=== PATIENT | male | born 1950 | race Caucasian/White ===

== ENCOUNTER 2025-05-31 01:44 | Emergency (ER) | payer OTHER ==
[2025-05-31] MEDS ORDERED: MORPHINE 4 MG/ML SYR ONE (02:06)
[2025-05-31] MEDS ORDERED: FAMOTIDINE 20 MG/2 ML VIAL IV ONE (02:06)
[2025-05-31] MEDS ORDERED: ONDANSETRON 4 MG/2 ML VIAL ONE (02:06)
[2025-05-31 02:28] LABS: Absolute Lymphocytes (CBC) 0.5 K/uL (0.7-4.9); Hematocrit 45.5 % (39.6-49.0); Hemoglobin 15.2 g/dL (13.6-17.9); MCH 29.6 pg (27.0-35.0); MCHC 33.5 g/dL (32.0-36.0); MCV 88.4 fL (80-100); MPV 8.4 fL (7.6-11.3); Nucleated RBC Absolute Count 0.0 (0-0); Nucleated Red Blood Cells % 0.0 % (0-0); RBC Red Blood Cell Count 5.15 M/uL (4.33-5.43); White Blood Count 11.30 thou/uL (4.3-10.9)
[2025-05-31 02:44] LABS: ALT/SGPT 393.0 U/L (16-61); AST/SGOT 131.0 U/L (15-37); Albumin 3.4 g/dL (3.4-5.0); Albumin/Globulin Ratio 0.7 (1.1-1.8); Alkaline Phosphatase 226.0 U/L (45-117); Anion Gap 13.0 mEq/L (5.0-15.0); BUN Blood Urea Nitrogen 14.0 mg/dL (7-18); Globulin 5.0 g/dL (2.3-3.5); Glucose Level 124.0 mg/dL (74-106); Lipase 3028.0 U/L (13-75); Potassium 4.0 mEq/L (3.5-5.1)
[2025-05-31 04:07] LABS: Blood Morphology Comment NOT SEEN (NOT SEEN); Differential Total Cells Count 100; Segmented Neutrophils 82 % (40-80)
[2025-05-31] MEDS ORDERED: NA CHLORIDE 0.9% 1,000 ML ONE (04:17)
[2025-05-31] MEDS ORDERED: PIPERACIL/TAZO 4.5 GM VIAL IV ONE (04:17)
[2025-05-31] MEDS ORDERED: NA CHLORIDE 0.9% 100 ML ONE (04:18)
--- NOTE | 2025-05-31 06:07 | EDPHYS ---
Physician Documentation [facility] Name: Stu Chand Age: 74 yrs Sex: Male : 1950 Arrival Date: 05/31/2025 Time: 01:44 Bed 13 Private MD: ED Physician Tyrese Sanders HPI: 05/31 02:27 This 74 yrs old Male presents to ER via Ambulatory with complaints of Abdominal Pain. tt7 02:27 Patient reports 3 days of constant epigastric abdominal pain with associated nausea and tt7 1 episode of nonbloody nonbilious vomiting today. No exacerbating or alleviating factors. Pain is 7/10 in severity. No significant past medical history. Historical: - Allergies: 02:25 No Known Allergies; kt5 - Home Meds: 02:25 None [Active]; kt5 - PMHx: 02:25 None; kt5 - Immunization history:: Adult Immunizations up to date. - Infectious Disease History:: Denies. - Social history:: Smoking status: Patient reports the use of cigarette tobacco products, smokes two packs cigarettes per day. Patient/guardian denies using alcohol, street drugs, IV drugs. ROS: 02:28 Constitutional: negative for fever. Cardiovascular: negative for chest pain. tt7 Respiratory: negative for shortness of breath. MS/Extremity: negative for injury and deformity. Skin: negative for rash. Neuro: negative for focal weakness. 02:28 Abdomen/GI: Positive for abdominal pain, nausea and vomiting, Negative for diarrhea, Exam: 02:28 Constitutional: vital signs reviewed, well appearing. Head/Face: normocephalic, tt7 atraumatic. Eyes: no conjunctival injection, anicteric sclerae. ENT: mucus membranes moist. Neck: trachea midline, no JVD, no meningismus. Chest/axilla: normal chest wall appearance and motion, nontender, no crepitus. Cardiovascular: regular rate and rhythm, no murmurs, no rubs, no lower extremity edema. Respiratory: normal respiratory effort, no accessory muscle use, lungs CTAB. Abdomen/GI: soft, nondistended, moderate epigastric tenderness, no guarding or rebound, negative Escalona's sign, no McBurney point tenderness. Back: normal ROM. Skin: warm, dry, intact, normal turgor, normal color, no rash. MS/ Extremity: normal ROM of extremities, no gross deformities. Neuro: alert and oriented with appropriate mental status, normal speech, follows commands, no focal neurologic deficits. Psych: appropriate mood and affect. 08:17 ECG was reviewed by the Attending Physician. [facility] Vital Signs: 01:50 BP 158 / 90; Pulse 68; Resp 17; Temp 97.7; Pulse Ox 96% ; Weight 79.38 kg; Height 6 ft. jj7 0 in. ; 03:22 BP 145 / 83; Pulse 86; Resp 18; Pulse Ox 96% ; Pain 3/10; kt5 04:29 BP 145 / 88; Pulse 80; Resp 18 S; Pulse Ox 95% on R/A; at6 05:17 BP 127 / 68; Pulse 81; Resp 18; Pulse Ox 93% ; kt5 06:22 BP 130 / 72; Pulse 84; Resp 16 S; Pulse Ox 93% on R/A; kt5 07:41 BP 129 / 70; Pulse 83; Resp 18; Pulse Ox 99% on R/A; ph 08:15 BP 151 / 95; Pulse 78; Resp 18; Pulse Ox 96% on R/A; af3 08:29 BP 134 / 81; Pulse 77; Resp 18; Pulse Ox 97% on R/A; af3 09:12 BP 120 / 71; Pulse 74; Resp 18; Pulse Ox 93% on R/A; af3 09:52 BP 116 / 73; Pulse 69; Resp 18; Pulse Ox 96% ; af3 01:50 Body Mass Index 23.73 (79.38 kg, 182.88 cm) jj7 03:22 Pain Scale: Adult kt5 MDM: 01:53 Medical Screening Exam initiated tt7 02:29 Differential Diagnosis Gastritis, peptic ulcer disease, pancreatitis, diverticulitis. tt7 Data reviewed: vital signs, nurses notes, lab test result(s), radiologic studies. 03:08 ED course: Laboratory studies demonstrate a mild leukocytosis of 11,000, significantly tt7 elevated lipase of just over 3000, moderate elevation in AST/ALT with the total bilirubin of 5, findings are all concerning for biliary obstruction causing pancreatitis, will start patient on empiric Zosyn and give IV fluids, I am still awaiting results of CT imaging but patient will need to be transferred to facility with on-call gastroenterology as will likely need ERCP or other specialty intervention. 06:27 ED course: CT imaging does show findings consistent with pancreatitis, no CT evidence tt7 of biliary pathology or duct dilatation but given his elevated liver enzymes and elevated bilirubin still suspect biliary pathology and likely patient needs MRCP or ERCP, will proceed with transfer to facility with GI on-call, patient also has findings of a 7.7 cm abdominal aortic aneurysm, no evidence of active hemorrhage, I discussed this finding with the patient, he believes it to be chronic, he states he thinks he has been followed on this before but unsure. 07:18 ED course: Patient care signed out to Dr. Sanders at 0700 pending doc to doc tt7 discussion with and transferred to [facility]. 05/31 02:03 Order name: CBC with Diff; Complete Time: 04:11 tt7 05/31 02:03 Order name: CMP; Complete Time: 02:59 tt7 05/31 02:03 Order name: Lipase; Complete Time: 02:59 tt7 05/31 02:32 Order name: Manual Differential; Complete Time: 04:11 EDMS 05/31 08:07 Order name: Lipid Profile [facility] 05/31 02:03 Order name: CT Abd/Pelvis - IV Contrast Only tt7 05/31 08:07 Order name: US Abdomen Limited [facility] 05/31 07:40 Order name: EKG; Complete Time: 07:40 [facility] 05/31 02:03 Order name: IV Saline Lock; Complete Time: 02:13 tt7 05/31 02:03 Order name: Labs collected and sent; Complete Time: 02:13 tt7 05/31 07:40 Order name: EKG - Nurse/Tech; Complete Time: 08:16 [facility] EC:17 Rate is 73 beats/min. Rhythm is regular. QRS [place] is Normal. OR interval is normal. QRS servando interval is normal. QT interval is normal. No Q waves. T waves are Normal. No ST changes noted. Clinical impression: Normal ECG and No evidence of ischemia. Interpreted by me. Reviewed by me. Administered Medications: 02:13 Drug: Famotidine IVP 20 mg IVP once; dilute with 10 mL 0.9% NaCl; give over 2 minutes kt5 Route: IVP; Site: right antecubital; 04:15 Follow up: Response: No adverse reaction kt5 02:13 Drug: Ondansetron IVP 4 mg IVP once; over 2 minutes Route: IVP; Site: right antecubital;kt5 04:15 Follow up: Response: No adverse reaction kt5 02:13 Drug: morphine IVP or IV 4 mg IVP once over 4 mins Route: IVP; Infused Over: 4 mins; kt5 Site: right antecubital; 04:16 Follow up: Response: No adverse reaction kt5 04:28 Drug: Piperacillin-Tazobactam IVPB 4.5 grams IVPB once over 60 mins; (mix in 100 mL NS) at6 Route: IVPB; Infused Over: 60 mins; Site: right antecubital; 05:34 Follow up: Response: No adverse reaction kt5 05:34 Follow up: IV Status: Completed infusion; IV Intake: 100ml kt5 04:28 Drug: NS 0.9% IV 1000 ml IV at 1 bolus Per protocol; to be given as a bolus over 60 at6 minutes Route: IV; Rate: 1 bolus; Site: right antecubital; 06:35 Follow up: Response: No adverse reaction; IV Status: Completed infusion; IV Intake: kt5 1000ml 08:00 Drug: Labetalol PO 100 mg PO once Route: PO; af3 09:20 Follow up: Response: No adverse reaction af3 08:00 Drug: Labetalol IV 10 mg IV at per protocol once Route: IV; Rate: per protocol; Site: af3 right antecubital; 09:20 Follow up: Response: No adverse reaction; IV Status: Completed infusion af3 09:52 Not Given (Hemodynamic Parameters): [id number] mg IV at per protocol once af3 Disposition: 07:19 Co-signature as Attending Physician, Flex Kowalski DO. tt7 Disposition Summary: 05/31/25 06:06 Transfer Ordered Notes: Transfer Location: [facility] tt7 Reason: Specialty tt7 Condition: Fair tt7 Problem: new tt7 Symptoms: have improved tt7 Accepting Physician: (05/31/25 10:01) af3 Diagnosis - Acute pancreatitis without necrosis or infection, unspecified tt7 - Abdominal aortic aneurysm, without rupture - 7.1 cm servando - Tobacco abuse counseling servando - Tobacco use servando Forms: - Medication Reconciliation Form tt7 - SBAR form tt7 Signatures: Dispatcher [employer] EDMS Tommy, Tyrese, MD MD servando Colby, Juwairiyah, RN RN jj7 Nelly Ulloa RN RN af3 Briana Obrien RN RN kt5 Flex Kowalski DO DO tt7 Betsy Kowalski RN RN at6 Corrections: (The following items were deleted from the chart) 07:37 06:06 Dr. roberto al 10:01 07:37 Dr.MASUMI al af3
--- NOTE | 2025-05-31 06:07 | ER ---
Nurse's Notes [facility] Name: Stu Chand Age: 74 yrs Sex: Male : 1950 Arrival Date: 05/31/2025 Time: 01:44 Bed 13 Private MD: Diagnosis: Acute pancreatitis without necrosis or infection, unspecified;Abdominal aortic aneurysm, without rupture-7.1 cm;Tobacco abuse counseling;Tobacco use Presentation: 05/31 01:50 Chief complaint: Patient states: ABDOMINAL PAIN X3 DAYS. STARTED VOMITING YESTERDAY. 3 jj7 EPISODES LAST NIGHT. Coronavirus screen: At this time, the client does not indicate any symptoms associated with coronavirus-19. Ebola Screen: No symptoms or risks identified at this time. Initial Sepsis Screen: Does the patient meet any 2 criteria? No. Patient's initial sepsis screen is negative. Does the patient have a suspected source of infection? No. Patient's initial sepsis screen is negative. Risk Assessment: Do you want to hurt yourself or someone else? Patient reports no desire to harm self or others. 01:50 Method Of Arrival: Ambulatory jj7 01:50 Acuity: KAYCEE 3 jj7 Triage Assessment: 01:50 General: Appears in no apparent distress. comfortable, Behavior is calm, cooperative, jj7 appropriate for age. Pain: Complains of pain in abdomen. Neuro: Level of Consciousness is awake, alert, obeys commands, Oriented to person, place, time, situation, Appropriate for age. GI: Reports upper abdominal pain, nausea, vomiting. Historical: - Allergies: 02:25 No Known Allergies; kt5 - Home Meds: 02:25 None [Active]; kt5 - PMHx: 02:25 None; kt5 - Immunization history:: Adult Immunizations up to date. - Infectious Disease History:: Denies. - Social history:: Smoking status: Patient reports the use of cigarette tobacco products, smokes two packs cigarettes per day. Patient/guardian denies using alcohol, street drugs, IV drugs. Screenin:25 [facility] ED Fall Risk Assessment (Adult) History of falling in the last 3 months, kt5 including since admission No falls in past 3 months (0 pts) Confusion or Disorientation No (0 pts) Intoxicated or Sedated No (0 pts) Impaired Gait No (0 pts) Mobility Assist Device Used No (0 pt) Altered Elimination No (0 pt) Score/Fall Risk Level 0 - 2 = Low Risk Oriented to surroundings, Maintained a safe environment. Abuse screen: Denies threats or abuse. Nutritional screening: No deficits noted. Tuberculosis screening: No symptoms or risk factors identified. Assessment: 02:00 General: Appears in no apparent distress. uncomfortable, Behavior is calm, cooperative, kt5 appropriate for age. Pain: Complains of pain in abdomen Pain does not radiate. Pain currently is 8 out of 10 on a pain scale. Quality of pain is described as aching, Pain began 2-3 days ago. Is continuous. Neuro: No deficits noted. Willard Agitation-Sedation Scale (RASS): 0 - Alert and Calm Level of Consciousness is awake, alert, obeys commands, Oriented to person, place, time, situation. Cardiovascular: No deficits noted. Denies chest pain, Heart tones S1 S2 present Capillary refill < 3 seconds Clubbing of nail beds is absent JVD is absent. Respiratory: No deficits noted. Airway is patent Trachea midline Respiratory effort is even, unlabored, Respiratory pattern is regular, symmetrical, Breath sounds are clear bilaterally. GI: No deficits noted. Abdomen is flat, non-distended, Bowel sounds present X 4 quads. Abd is soft X 4 quads Abdomen is tender to palpation in right upper quadrant, left upper quadrant, right lower quadrant and left lower quadrant Reports diarrhea, nausea, vomiting. : No deficits noted. No signs and/or symptoms were reported regarding the genitourinary system. Reports "i noticed my urine is a little darker". EENT: No deficits noted. No signs and/or symptoms were reported regarding the EENT system. Derm: No deficits noted. No signs and/or symptoms reported regarding the dermatologic system. Musculoskeletal: No deficits noted. No signs and/or symptoms reported regarding the musculoskeletal system. 03:19 Reassessment: Patient appears in no apparent distress at this time. Patient and/or kt5 family updated on plan of care and expected duration. Pain level reassessed. Patient is alert, oriented x 3, equal unlabored respirations, skin warm/dry/pink. Patient denies pain at this time. Patient states feeling better. Patient states symptoms have improved. 04:28 Reassessment: Patient appears in no apparent distress at this time. Provider at bedside at6 updating patient at this time. All questions answered. 05:33 Reassessment: Patient appears in no apparent distress at this time. No changes from kt5 previously documented assessment. Patient and/or family updated on plan of care and expected duration. Pain level reassessed. Patient is alert, oriented x 3, equal unlabored respirations, skin warm/dry/pink. Patient denies pain at this time. Patient states feeling better. Patient states symptoms have improved. 06:22 Reassessment: Patient appears in no apparent distress at this time. No changes from kt5 previously documented assessment. Patient and/or family updated on plan of care and expected duration. Pain level reassessed. Patient is alert, oriented x 3, equal unlabored respirations, skin warm/dry/pink. Patient states feeling better. Patient states symptoms have improved. 07:30 Reassessment: Patient appears in no apparent distress at this time. No changes from af3 previously documented assessment. Patient and/or family updated on plan of care and expected duration. Pain level reassessed. Patient is alert, oriented x 3, equal unlabored respirations, skin warm/dry/pink. 08:30 Reassessment: Patient appears in no apparent distress at this time. No changes from af3 previously documented assessment. Patient and/or family updated on plan of care and expected duration. Pain level reassessed. Patient is alert, oriented x 3, equal unlabored respirations, skin warm/dry/pink. 09:12 Reassessment: Patient appears in no apparent distress at this time. No changes from af3 previously documented assessment. Patient and/or family updated on plan of care and expected duration. Pain level reassessed. Patient is alert, oriented x 3, equal unlabored respirations, skin warm/dry/pink. 09:19 Reassessment: report called to ARSH Odom at [facility] . af3 09:52 Reassessment: Napaimute at bedside. af3 Vital Signs: 01:50 BP 158 / 90; Pulse 68; Resp 17; Temp 97.7; Pulse Ox 96% ; Weight 79.38 kg; Height 6 ft. jj7 0 in. ; 03:22 BP 145 / 83; Pulse 86; Resp 18; Pulse Ox 96% ; Pain 3/10; kt5 04:29 BP 145 / 88; Pulse 80; Resp 18 S; Pulse Ox 95% on R/A; at6 05:17 BP 127 / 68; Pulse 81; Resp 18; Pulse Ox 93% ; kt5 06:22 BP 130 / 72; Pulse 84; Resp 16 S; Pulse Ox 93% on R/A; kt5 07:41 BP 129 / 70; Pulse 83; Resp 18; Pulse Ox 99% on R/A; ph 08:15 BP 151 / 95; Pulse 78; Resp 18; Pulse Ox 96% on R/A; af3 08:29 BP 134 / 81; Pulse 77; Resp 18; Pulse Ox 97% on R/A; af3 09:12 BP 120 / 71; Pulse 74; Resp 18; Pulse Ox 93% on R/A; af3 09:52 BP 116 / 73; Pulse 69; Resp 18; Pulse Ox 96% ; af3 01:50 Body Mass Index 23.73 (79.38 kg, 182.88 cm) jj7 03:22 Pain Scale: Adult kt5 ED Course: 01:46 Patient arrived in ED. mr 01:50 Arm band placed on right wrist. Patient placed in an exam room, on a stretcher. jj7 01:53 Flex Kowalski DO is Attending Physician. tt7 02:03 Briana Obrien, RN is Primary Nurse. kt5 02:08 Triage completed. jj7 02:13 CT Abd/Pelvis - IV Contrast Only Sent. kt5 02:13 CBC with Diff Sent. kt5 02:13 CMP Sent. kt5 02:13 Lipase Sent. kt5 02:25 Patient has correct armband on for positive identification. Bed in low position. Call kt5 light in reach. Side rails up X 1. Client placed on continuous cardiac and pulse oximetry monitoring. NIBP monitoring applied. Door closed. Noise minimized. Pillow given. 02:25 No provider procedures requiring assistance completed. Inserted saline lock: 20 gauge kt5 in right antecubital area, using aseptic technique. Blood collected. Flushed with 10 mL NS. 03:11 CT Abd/Pelvis - IV Contrast Only In Process Unspecified. EDMS 06:27 initiated a transfer with Mohit from the [facility]. eb 06:37 Per Mohit we will have to wait for day shift to finish the transfer per their night eb hospitalist. 07:[address] Watts the hospitalist aviation safety equipment technician for [facility] with Dr. Sanders for eb patient transfer consultation. 07:34 Attending Physician role handed off by Flex Kowalski DO cha 07:34 Tyrese Sanders MD is Attending Physician. servando 08:30 administrative approval given by Elaine Cadena Rn/ patient has been accepted to [facility] room 2418/ Dr. Yessy Watts has accepted the patient in transfer/ report to be called to [phone]. 08:37 US Abdomen Limited In Process Unspecified. EDMS 09:53 Provided Education on: call light use . af3 10:01 Patient transferred, IV remains in place. af3 Administered Medications: 02:13 Drug: Famotidine IVP 20 mg IVP once; dilute with 10 mL 0.9% NaCl; give over 2 minutes kt5 Route: IVP; Site: right antecubital; 04:15 Follow up: Response: No adverse reaction kt5 02:13 Drug: Ondansetron IVP 4 mg IVP once; over 2 minutes Route: IVP; Site: right antecubital;kt5 04:15 Follow up: Response: No adverse reaction kt5 02:13 Drug: morphine IVP or IV 4 mg IVP once over 4 mins Route: IVP; Infused Over: 4 mins; kt5 Site: right antecubital; 04:16 Follow up: Response: No adverse reaction kt5 04:28 Drug: Piperacillin-Tazobactam IVPB 4.5 grams IVPB once over 60 mins; (mix in 100 mL NS) at6 Route: IVPB; Infused Over: 60 mins; Site: right antecubital; 05:34 Follow up: Response: No adverse reaction kt5 05:34 Follow up: IV Status: Completed infusion; IV Intake: 100ml kt5 04:28 Drug: NS 0.9% IV 1000 ml IV at 1 bolus Per protocol; to be given as a bolus over 60 at6 minutes Route: IV; Rate: 1 bolus; Site: right antecubital; 06:35 Follow up: Response: No adverse reaction; IV Status: Completed infusion; IV Intake: kt5 1000ml 08:00 Drug: Labetalol PO 100 mg PO once Route: PO; af3 09:20 Follow up: Response: No adverse reaction af3 08:00 Drug: Labetalol IV 10 mg IV at per protocol once Route: IV; Rate: per protocol; Site: af3 right antecubital; 09:20 Follow up: Response: No adverse reaction; IV Status: Completed infusion af3 09:52 Not Given (Hemodynamic Parameters): [id number] mg IV at per protocol once af3 Medication: 02:25 VIS not applicable for this client. kt5 Intake: 05:34 IV: 100ml; Total: 100ml. kt5 06:35 IV: 1000ml; Total: 1100ml. kt5 Outcome: 06:06 ER care complete, transfer ordered by . tt7 10:00 Transferred by ground EMS to [facility], [facility], Transfer form completed. af3 10:00 Condition: stable 10:00 Instructed on the need for transfer, Demonstrated understanding of instructions, 10:01 Patient left the ED. af3 Signatures: Dispatcher [employer] EDMS Tyrese Sanders MD MD cha Rivera, Mary, Reg Reg mr Viviana Driscoll, RN RN Antoinette Romano Juwairiyah, RN RN jj7 Nelly lUloa RN RN af3 Briana Obrien RN RN kt5 Flex Kowalski, DO tt7 Betsy Kowalski, ARSH RN at6
--- NOTE | 2025-05-31 06:16 | RAD REPORT ---
CLINICAL HISTORY: Abdominal pain. COMPARISON: None. TECHNIQUE: CT ABDOMEN PELVIS WITH IV CONTRAST on 05/31/2025 2:03 AM CDT This exam was performed according to our departmental dose-optimization program, which includes autom ated exposure control, adjustment of the mA and/or kV according to patient size and/or use of iterative reconstruction technique. FINDINGS: Lower lungs are clear. Abdomen: The liver is normal in appearance. There is no biliary dilatation. Gallbladder is normal in appearance. Spleen is normal in size. There is moderate inflammation surrounding the pancreas. Adrenal glands are normal. Multiple right renal cysts measure up to 5 cm. Several small left renal cy sts measure up to 13 mm. Abdominal aorta is severely atherosclerotic with the distal infrarenal aneurysm measuring 7.7 cm. The re is no evidence of acute associated hemorrhage. There is no free air. There is no retroperitoneal adenopathy. Pelvis: There is moderate diverticulosis of the distal colon. Urinary bladder is unremarkable. There is no free fluid. Appendix is normal. There is a right inguinal hernia containing a portion of the ileum. There is a small fat-containing left inguinal hernia. Skeleton: There are no acute osseous findings. No suspicious bony lesions. IMPRESSION: Acute pancreatitis. Abdominal aortic aneurysm measuring 7.7 cm. Recommend CTA or MRA, as appropriate, in 6 months and ref erral to a vascular specialist. Reference: Journal of Vascular Surgery 67.1 (2018): 2-77. J Am Anjana Radiol 2013;10:789-794. Multiple lesions, including right Bosniak I benign renal cyst measuring 5 cm. No follow-up imaging is recommended. JACR 2018 Sep; 264-273, Management of the Incidental Renal Mass on CT, [employer] 2020; 814-848, Bosniak Classification of Cystic Renal Masses, Version 2019. Right inguinal hernia containing a portion of the ileum without bowel obstruction. Electronically signed by: Timothy Sullivan MD 05/31/2025 05:21 AM CDT RP Due to temporary technical issues with the PACS/[employer] reporting system, reports are being erik d by the in-house radiologist without review as a courtesy to ensure prompt reporting the interpreting radiologist is fully responsible for the content of the report. Transcribed Date/Time: 05/31/2025 6:16 AM
[2025-05-31] MEDS ORDERED: LABETALOL HCL 100 MG TAB ONE (07:47)
[2025-05-31] MEDS ORDERED: LABETALOL 20 MG/4ML SYRINGE IV ONE (07:47)
--- NOTE | 2025-05-31 08:51 | RAD REPORT ---
Abdomen Exam Limited: 05/31/2025 8:07 AM CLINICAL HISTORY: ABD PAIN STUDY: Limited right upper quadrant ultrasound of abdomen. COMPARISON: Same-day CT FINDINGS: Liver: Limited evaluation. Hepatic steatosis noted. Bile ducts: No intrahepatic or extrahepatic biliary ductal dilatation. Common bile duct measures 4 mm. Gallbladder: Decompressed gallbladder with wall thickening. No shadowing stones. IMPRESSION: Contracted gallbladder with wall thickening is probably reactive to underlying acute pancreatitis as seen on the same day CT. Negative for cholelithiasis or biliary duct dilatation.
[2025-05-31 09:55] LABS: HDL Cholesterol 41.0 mg/dL (40-60); LDL Cholesterol, Calculated 167.0 mg/dL (<130); LDL Cholesterol,Calc NonReport 167.0
[2025-05-31 10:16] VITALS: TEMP 97.7
[2025-05-31 10:32] VITALS: BP 116/73; O2SAT 96
== END 2025-05-31 10:01 | disposition short-term general hospital (02) ==
LOC: ER 01:44
DX: K85.90 Acute pancreatitis without necrosis or infection, unspecified (principal); I71.40 Abdominal aortic aneurysm, without rupture, unspecified; Z71.6 Tobacco abuse counseling; Z72.0 Tobacco use
CPT/HCPCS: 96365; 96367; 96361; 93005; 85025; 36415; 80061; 83690; 80053; 74177; 76705; 96375; 99285; Q9967; J2405; J7030

== ENCOUNTER 2025-06-07 09:03 | Emergency (ER) | payer OTHER ==
[2025-06-07] MEDS ORDERED: ONDANSETRON 4 MG/2 ML VIAL ONE ×2 (09:33→15:09)
[2025-06-07] MEDS ORDERED: FAMOTIDINE 20 MG/2 ML VIAL IV ONE (09:34)
[2025-06-07] MEDS ORDERED: MORPHINE 4 MG/ML SYR ONE ×2 (09:34→15:09)
[2025-06-07 10:00] LABS: Absolute Lymphocytes (CBC) 0.9 K/uL (0.7-4.9); Hematocrit 34.2 % (39.6-49.0); Hemoglobin 11.4 g/dL (13.6-17.9); MCH 29.3 pg (27.0-35.0); MCHC 33.2 g/dL (32.0-36.0); MCV 88.1 fL (80-100); MPV 7.9 fL (7.6-11.3); Nucleated RBC Absolute Count 0.0 (0-0); Nucleated Red Blood Cells % 0.0 % (0-0); RBC Red Blood Cell Count 3.88 M/uL (4.33-5.43); White Blood Count 12.00 thou/uL (4.3-10.9)
--- NOTE | 2025-06-07 10:16 | RAD REPORT ---
EXAMINATION: CT ABDOMEN AND PELVIS WITH CONTRAST CLINICAL INDICATION: Abdominal pain TECHNIQUE: CT abdomen and pelvis was performed, after the administration of 100 cc Isovue-300.. Sagit lilian and coronal reconstructions were obtained. One or more of the following dose reduction techniques were used: Automated exposure control, adjustment of the mA and kV according to patient si ze, and iterative reconstruction. Unless otherwise specified, incidental findings do not require dedicated imaging follow-up. [id number]. Oral contrast was not given which limits evaluation of bowel and appendix. COMPARISON: .May 31, 2025 FINDINGS: The pancreas has become more edematous since prior exam. Ill-defined. Pancreatic fluid is present imelda suring approximately 10 x 5 cm. An enhancing wall is not visualized. Subcentimeter cystic lesion pancreatic body nonspecific. A stent has been placed. A portion of the stent lies within the pancreatic duct as well. Pneumobilia is present. Increased density has developed within the gallbladder presumably contrast. Normal appearing renal cysts. Largest right kidney 4.5 cm. An aorto biiliac stent has been placed into an aortic aneurysm. The stent is patent. No periaortic he matoma. Prostate gland moderately enlarged. Air within bladder. Diverticula stem from colon without visualization of diverticulitis. Normal appendix. Moderate inguinal hernias. The right inguinal hernia contains nondilated small bowel. No obstruction. . : IMPRESSION: Worsening pancreatitis. 10 x 5 cm fluid peripancreatic fluid collection may evolve into a pseudocyst. Moderate inguinal hernias. Right inguinal hernia and bowel. Fluid within the bladder may be secondary to recent instrumentation or infection.
[2025-06-07 10:24] LABS: PT Prothrombin Time 13.6 SECONDS (10-13.0); Protime INR 1.21
[2025-06-07 10:33] LABS: ALT/SGPT 99.0 U/L (16-61); Albumin 2.2 g/dL (3.4-5.0); Albumin/Globulin Ratio 0.4 (1.1-1.8); Alkaline Phosphatase 205.0 U/L (45-117); Anion Gap 8.8 mEq/L (5.0-15.0); BUN Blood Urea Nitrogen 10.0 mg/dL (7-18); Bilirubin Indirect, Calculated 1.0 mg/dL (0.2-0.8); Globulin 4.9 g/dL (2.3-3.5); Glucose Level 113.0 mg/dL (74-106); Lipase 94.0 U/L (13-75); NT PRO-BNP 745.0 pg/mL (<450); Troponin High Sensitivity 5.1 pg/mL (<58.9)
[2025-06-07 10:35] LABS: AST/SGOT 60.0 U/L (15-37); Magnesium 1.8 mg/dL (1.6-2.4); Potassium 3.8 mEq/L (3.5-5.1)
[2025-06-07] MEDS ORDERED: NA CHLORIDE 0.9% 2,000 ML ONE (10:55)
[2025-06-07] MEDS ORDERED: NA CHLORIDE 0.9% 250 ML ONE (10:55)
[2025-06-07] MEDS ORDERED: Meropenem 1000 MG/VIAL IV ONE (10:55)
--- NOTE | 2025-06-07 10:55 | EDPHYS ---
Physician Documentation [facility] Name: Stu Chand Age: 74 yrs Sex: Male : 1950 Arrival Date: 06/07/2025 Time: 09:03 Bed 7 Private MD: ED Physician Tyrese Sanders HPI: 06/07 10:49 This 74 yrs old Male presents to ER via Unassigned with complaints of servando Abdominal Pain. 10:49 The patient presents with abdominal pain in the upper abdomen, in the lower abdomen. servando Onset: The symptoms/episode began/occurred 5 day(s) ago. The symptoms do not radiate. Associated signs and symptoms: none. The symptoms are described as constant, crampy. Modifying factors: The symptoms are alleviated by nothing, the symptoms are aggravated by food. Severity of pain: At its worst the pain was moderate in the emergency department the pain is unchanged. The patient has experienced similar episodes in the past, multiple times. Historical: - Allergies: 10:57 No Known Allergies; kb4 - PMHx: 14:21 aortic aneurysm; me1 - Immunization history:: Adult Immunizations up to date. - Infectious Disease History:: Denies. - Family history:: not pertinent. - Social history:: Smoking status: Patient denies any tobacco usage or history of. ROS: 10:49 Constitutional: Negative for fever, chills, and weight loss, Eyes: Negative for injury, servando pain, redness, and discharge, ENT: Negative for injury, pain, and discharge, Neck: Negative for injury, pain, and swelling, Cardiovascular: Negative for chest pain, palpitations, and edema, Respiratory: Negative for shortness of breath, cough, wheezing, and pleuritic chest pain, Back: Negative for injury and pain, : Negative for injury, bleeding, discharge, and swelling, MS/Extremity: Negative for injury and deformity, Skin: Negative for injury, rash, and discoloration, Neuro: Negative for headache, weakness, numbness, tingling, and seizure, Psych: Negative for depression, anxiety, suicide ideation, homicidal ideation, and hallucinations, Allergy/Immunology: Negative for hives, rash, and allergies, Endocrine: Negative for neck swelling, polydipsia, polyuria, polyphagia, and marked weight changes, Hematologic/Lymphatic: Negative for swollen nodes, abnormal bleeding, and unusual bruising, 10:49 Abdomen/GI: Positive for abdominal pain, abdominal cramps, abdominal distension, of the right upper quadrant, left upper quadrant, right lower quadrant and left lower quadrant, Exam: 10:49 Constitutional: This is a well developed, well nourished patient who is awake, alert, servando and in no acute distress. Head/Face: Normocephalic, atraumatic. Eyes: Pupils equal round and reactive to light, extra-ocular motions intact. Lids and lashes normal. Conjunctiva and sclera are non-icteric and not injected. Cornea within normal limits. Periorbital areas with no swelling, redness, or edema. ENT: Nares patent. No nasal discharge, no septal abnormalities noted. Tympanic membranes are normal and external auditory canals are clear. Oropharynx with no redness, swelling, or masses, exudates, or evidence of obstruction, uvula midline. Mucous membranes moist. Neck: Trachea midline, no thyromegaly or masses palpated, and no cervical lymphadenopathy. Supple, full range of motion without nuchal rigidity, or vertebral point tenderness. No Meningismus. Chest/axilla: Normal chest wall appearance and motion. Nontender with no deformity. No lesions are appreciated. Cardiovascular: Regular rate and rhythm with a normal S1 and S2. No gallops, murmurs, or rubs. Normal PMI, no JVD. No pulse deficits. Respiratory: Lungs have equal breath sounds bilaterally, clear to auscultation and percussion. No rales, rhonchi or wheezes noted. No increased work of breathing, no retractions or nasal flaring. Back: No spinal tenderness. No costovertebral tenderness. Full range of motion. Male : Normal genitalia with no discharge or lesions. Skin: Warm, dry with normal turgor. Normal color with no rashes, no lesions, and no evidence of cellulitis. MS/ Extremity: Pulses equal, no cyanosis. Neurovascular intact. Full, normal range of motion., bilateral aka Neuro: Awake and alert, GCS 15, oriented to person, place, time, and situation. Cranial nerves II-XII grossly intact. Motor strength 5/5 in all extremities. Sensory grossly intact. Cerebellar exam normal. Normal gait. Psych: Awake, alert, with orientation to person, place and time. Behavior, mood, and affect are within normal limits. 10:49 ECG was reviewed by the Attending Physician. 10:49 Abdomen/GI: Inspection: distension, Bowel sounds: active, all quadrants, Palpation: moderate abdominal tenderness, in all quadrants, Liver: no appreciated palpable abnormalities, Hernia: not appreciated, 10:49 Musculoskeletal/extremity: DVT Exam: No signs of deep vein thrombosis. no pain, no swelling, no tenderness, negative Homans' sign noted on exam, no appreciated bluish discoloration, no erythema, no increased warmth, Vital Signs: 09:38 BP 136 / 80; Pulse 77; Resp 16; Temp 98.2; Pulse Ox 98% on R/A; Weight 77.11 kg; Height em1 6 ft. 0 in. ; Pain 9/10; 10:00 BP 143 / 74; Pulse 77; Resp 17; Pulse Ox 97% on R/A; me1 11:11 BP 137 / 78; Pulse 74; Resp 17; Pulse Ox 97% on R/A; ar8 12:00 BP 133 / 79; Pulse 75; Resp 17; Pulse Ox 96% ; me1 13:00 BP 142 / 82; Pulse 75; Resp 16; Pulse Ox 97% on R/A; me1 14:00 BP 131 / 76; Pulse 78; Resp 17; Pulse Ox 96% ; me1 15:00 BP 133 / 73; Pulse 77; Resp 16; Temp 98.2; Pulse Ox 96% on R/A; me1 09:38 Body Mass Index 23.06 (77.11 kg, 182.88 cm) em1 09:38 Pain Scale: Adult em1 MDM: 09:12 Medical Screening Exam initiated servando 10:52 Differential diagnosis: AAA, bowel obstruction, coronary artery disease, cholecystitis, servando Cholelithiasis, diverticulitis, gastritis, gastroesophageal reflux disease, GI Bleed, Hepatitis, Herpes Zoster, Irritable bowel syndrome, Mesenteric ischemia or infarction, non-specific abd pain, pancreatitis, Peptic Ulcer Disease, Perf. Duodenal Ulcer, Perf. Gastric Ulcer, Peritonitis, Prostatitis, Pyelonephritis, Testicular Torsion, Ureterolithiasis, urinary tract infection. Data reviewed: vital signs, nurses notes, lab test result(s), EKG, radiologic studies, CT scan, plain films. Consideration of Admission/Observation Escalation of care including admission/observation considered. I considered the following discharge prescriptions or medication management in the emergency department Medications were administered in the Emergency Department. See MAR. Independent interpretation of the following test(s) in the Emergency Department EKG: See my EKG interpretation above. Test considered but Not performed: Ultrasound no abd usg. Historians other than the Patient: pt well informed. Care significantly affected by the following chronic conditions: Hypertension, aaa, sp stents. 06/07 09:13 Order name: Basic Metabolic Panel; Complete Time: 10:45 servando 06/07 09:13 Order name: CBC with Diff; Complete Time: 11:32 servando 06/07 09:13 Order name: LFT's; Complete Time: 10:45 servando 06/07 09:13 Order name: Magnesium; Complete Time: 10:45 [facility] 06/07 09:13 Order name: NT PRO-BNP; Complete Time: 10:45 [facility] 06/07 09:13 Order name: PT-INR; Complete Time: 10:45 [facility] 06/07 09:13 Order name: Troponin HS; Complete Time: 10:45 [facility] 06/07 09:13 Order name: Lipase; Complete Time: 10:45 [facility] 06/07 09:13 Order name: UA Rfx Troy Cult if indicated 06/07 10:06 Order name: Manual Differential; Complete Time: 11:32 EDMS 06/07 09:13 Order name: XRAY Chest (1 view); Complete Time: 11:32 [facility] 06/07 09:13 Order name: CT Abd/Pelvis - IV Contrast Only; Complete Time: 10:45 [facility] 06/07 09:13 Order name: Cardiac monitoring; Complete Time: 09:57 [facility] 06/07 09:13 Order name: EKG - Nurse/Tech; Complete Time: 09:57 [facility] 06/07 09:13 Order name: IV Saline Lock; Complete Time: 09:57 [facility] 06/07 09:13 Order name: Labs collected and sent; Complete Time: 09:57 [facility] 06/07 09:13 Order name: O2 Per Protocol; Complete Time: 09:57 [facility] 06/07 09:13 Order name: O2 Sat Monitoring; Complete Time: 09:57 [facility] EC:49 Rate is 76 beats/min. Rhythm is regular. QRS [place] is Normal. [place] interval is normal. QRS servando interval is normal. QT interval is normal. No Q waves. T waves are Normal. No ST changes noted. Clinical impression: NSR w/ Non-specific ST/T Changes and No evidence of ischemia. Interpreted by me. Reviewed by me. Administered Medications: 09:56 Drug: Ondansetron IVP 4 mg IVP once; over 2 minutes Route: IVP; Site: right antecubital;kb4 13:07 Follow up: Response: No adverse reaction; Nausea is decreased me1 09:56 Drug: morphine IVP or IV 2 mg IVP once over 4 mins Route: IVP; Infused Over: 4 mins; kb4 Site: right antecubital; 13:07 Follow up: Response: No adverse reaction; Pain is decreased me1 09:57 Drug: Famotidine IVP 20 mg IVP once; dilute with 10 mL 0.9% NaCl; give over 2 minutes kb4 Route: IVP; Site: right antecubital; 13:07 Follow up: Response: No adverse reaction me1 11:09 Drug: NS 0.9% IV 1000 ml IV at 1000 ml once; to be given as a bolus over 60 minutes ar8 Route: IV; Rate: 1000 ml; Site: right antecubital; 13:06 Follow up: Response: No adverse reaction; IV Status: Completed infusion me1 11:10 Drug: Meropenem IV 1 grams IV at per protocol once; (mix in NS 100 mL) Route: IV; Rate: ar8 per protocol; Site: right antecubital; 12:29 Follow up: Response: No adverse reaction; IV Status: Completed infusion me1 13:16 Drug: NS 0.9% IV 1000 ml IV at 125 ml/hr once Route: IV; Rate: 125 ml/hr; Site: right me1 antecubital; 13:23 Follow up: IV Status: Infusion continued upon transfer me1 15:14 Drug: Ondansetron IVP 4 mg IVP once; over 2 minutes Route: IVP; Site: right antecubital;me1 15:15 Follow up: Response: No adverse reaction; Nausea is decreased me1 15:14 Drug: morphine IVP or IV 4 mg IVP once over 4 mins Route: IVP; Infused Over: 4 mins; me1 Site: right antecubital; 15:15 Follow up: Response: No adverse reaction; Pain is decreased me1 Disposition Summary: 06/07/25 10:54 Transfer Ordered Notes: Transfer Location: [facility] servando Reason: Higher level of care servando Condition: Fair servando Problem: new servando Symptoms: have improved servando Accepting Physician: mario easton(06/07/25 15:17) me1 Diagnosis - Abdominal pain, Generalized servando - Calculus of gallbladder and bile duct with acute cholecystitis with obstruction - servando with CBD - Biliary acute pancreatitis - WITH FLUID COLLECTION 10 X 5 CM(06/07/25 10:55) servando - Elevated white blood cell count servando Forms: - Medication Reconciliation Form servando - SBAR form servando Signatures: Dispatcher [employer] EDMS Tyrese Sanders MD MD cha Eddleman, Michelle, RN RN me1 Sapphire Cavazos RN RN kb4 Narinder Craft, RN RN ar8 Corrections: (The following items were deleted from the chart) 09:14 09:14 BASIC METABOLIC PANEL+C.LAB.BRZ ordered. EDMS EDMS 09:14 09:14 CBC+H.LAB.BRZ ordered. EDMS EDMS 09:14 09:14 HEPATIC FUNCTION+C.LAB.BRZ ordered. EDMS EDMS 09:14 09:14 MAGNESIUM+C.LAB.BRZ ordered. EDMS EDMS 09:14 09:14 PROBNP+C.LAB.BRZ ordered. EDMS EDMS 09:14 09:14 PROTIME (+INR)+COAG.LAB.BRZ ordered. EDMS EDMS 09:14 09:14 Troponin High Sensitivity+C.LAB.BRZ ordered. EDMS EDMS 09:14 09:14 LIPASE+C.LAB.BRZ ordered. EDMS EDMS 09:14 09:14 UA Rfx Troy Cult if indicated+U.LAB.BRZ ordered. EDMS EDMS 09:14 09:14 Abdomen Pelvis W Con+CT.RAD.BRZ ordered. EDMS EDMS 10:55 10:54 mario [facility] servando servando 10:55 10:54 Biliary acute pancreatitis servando servando 10:56 10:55 mario [facility] servando servando 15:17 10:56 [facility] servando me1
--- NOTE | 2025-06-07 10:55 | ER ---
Nurse's Notes [facility] Name: Stu Chand Age: 74 yrs Sex: Male : 1950 Arrival Date: 06/07/2025 Time: 09:03 Bed 7 Private MD: Diagnosis: Abdominal pain, Generalized;Calculus of gallbladder and bile duct with acute cholecystitis with obstruction-with CBD;Biliary acute pancreatitis-WITH FLUID COLLECTION 10 X 5 CM;Elevated white blood cell count Presentation: 06/07 09:45 Chief complaint: Patient states: c/o abd pain x1wk, was released from [facility] kb4 yesterday for stent placement, states "i came in for gallbladder pain last week and was treated for an aneurysm instead, i still have gallbladder pain". Coronavirus screen: At this time, unable to obtain information related to travel outside the [place] Ebola Screen: No symptoms or risks identified at this time. Initial Sepsis Screen: Does the patient meet any 2 criteria? No. Patient's initial sepsis screen is negative. Does the patient have a suspected source of infection? No. Patient's initial sepsis screen is negative. 09:45 Method Of Arrival: Ambulatory 4 09:45 Risk Assessment: Do you want to hurt yourself or someone else? Patient reports no 4 desire to harm self or others. Onset of symptoms was June 03, 2025. 09:45 Acuity: KAYCEE 3 kb4 Triage Assessment: 10:00 General: Appears in no apparent distress. comfortable, Behavior is calm, cooperative. kb4 10:00 Pain: Complains of pain in abdomen. GI: Abdomen is distended. kb4 Historical: - Allergies: 10:57 No Known Allergies; kb4 - PMHx: 14:21 aortic aneurysm; me1 - Immunization history:: Adult Immunizations up to date. - Infectious Disease History:: Denies. - Family history:: not pertinent. - Social history:: Smoking status: Patient denies any tobacco usage or history of. Screenin:00 [facility] ED Fall Risk Assessment (Adult) History of falling in the last 3 months, me1 including since admission No falls in past 3 months (0 pts) Confusion or Disorientation No (0 pts) Intoxicated or Sedated No (0 pts) Impaired Gait No (0 pts) Mobility Assist Device Used No (0 pt) Altered Elimination No (0 pt) Score/Fall Risk Level 0 - 2 = Low Risk Maintained a safe environment, Provided non-skid footwear, Hourly rounding (assess needs \\T\\ fall precautionary measures) done. Abuse screen: Denies threats or abuse. Nutritional screening: No deficits noted. Tuberculosis screening: No symptoms or risk factors identified. Assessment: 10:00 General: Appears uncomfortable, well groomed, well developed, well nourished, Behavior me1 is calm, cooperative, appropriate for age, Reports c/o abd pain x1wk, was released from [facility] yesterday for stent placement, states "i came in for gallbladder pain last week and was treated for an aneurysm instead, i still have gallbladder pain". Pain: Complains of pain in abdomen Pain radiates to right upper quadrant Pain currently is 9 out of 10 on a pain scale. Quality of pain is described as sharp, stabbing, Pain began gradually, Is continuous. Neuro: Level of Consciousness is awake, alert, obeys commands, Oriented to person, place, time, situation, Appropriate for age. Cardiovascular: Patient's skin is warm and dry. Respiratory: Airway is patent Respiratory effort is even, unlabored, Respiratory pattern is regular, symmetrical. GI: Abdomen is non-distended, Bowel sounds present X 4 quads. Abd is soft X 4 quads Reports upper abdominal pain, nausea. : No signs and/or symptoms were reported regarding the genitourinary system. EENT: No signs and/or symptoms were reported regarding the EENT system. Derm: Skin is intact, is healthy with good turgor, Skin is normal. Musculoskeletal: Circulation, motion, and sensation intact. Range of motion: intact in all extremities. 14:24 General: Report given to ARSH Ramírez at [facility] [address]. . me1 Vital Signs: 09:38 BP 136 / 80; Pulse 77; Resp 16; Temp 98.2; Pulse Ox 98% on R/A; Weight 77.11 kg; Height em1 6 ft. 0 in. ; Pain 9/10; 10:00 BP 143 / 74; Pulse 77; Resp 17; Pulse Ox 97% on R/A; me1 11:11 BP 137 / 78; Pulse 74; Resp 17; Pulse Ox 97% on R/A; ar8 12:00 BP 133 / 79; Pulse 75; Resp 17; Pulse Ox 96% ; me1 13:00 BP 142 / 82; Pulse 75; Resp 16; Pulse Ox 97% on R/A; me1 14:00 BP 131 / 76; Pulse 78; Resp 17; Pulse Ox 96% ; me1 15:00 BP 133 / 73; Pulse 77; Resp 16; Temp 98.2; Pulse Ox 96% on R/A; me1 09:38 Body Mass Index 23.06 (77.11 kg, 182.88 cm) em1 09:38 Pain Scale: Adult em1 ED Course: 09:04 Patient arrived in ED. mr 09:12 Tyrese Sanders MD is Attending Physician. servando 09:45 Arm band placed on Patient placed in an exam room. me1 09:59 CT Abd/Pelvis - IV Contrast Only In Process Unspecified. EDMS 10:00 Patient has correct armband on for positive identification. Bed in low position. Call ky1 light in reach. Side rails up X2. Provided Education on: POC. Verbalized understanding. Client placed on continuous cardiac and pulse oximetry monitoring. NIBP monitoring applied. producer director on. Pulse ox on. NIBP on. 10:00 No provider procedures requiring assistance completed. me1 10:26 XRAY Chest (1 view) In Process Unspecified. EDMS 10:52 Narinder Craft, RN is Primary Nurse. ar8 10:53 initiated a transfer with Nelly from the [facility] Transfer Center. 10:57 Triage completed. kb4 11:28 administrative approval given by Nelly Henriquez/ patient has been auto accepted to [facility] room 2462/ Dr. Eusebia Connor has accepted the patient in transfer/ report to be called to [phone]. 13:07 Initial lab(s) drawn, by ky, sent to lab. Inserted saline lock: 20 gauge in right ky1 antecubital area, using aseptic technique. 13:08 EKG done, by ED staff, reviewed by Tyrese Sanders [place]. [facility] [place] UA Rfx [place] Cult if indicated Sent. ky1 13:23 Urine collected: clean catch specimen, clear. me1 15:16 Patient transferred, IV remains in place. ky1 Administered Medications: 09:56 Drug: Ondansetron IVP 4 mg IVP once; over 2 minutes Route: IVP; Site: right antecubital;kb4 13:07 Follow up: Response: No adverse reaction; Nausea is decreased me1 09:56 Drug: morphine IVP or IV 2 mg IVP once over 4 mins Route: IVP; Infused Over: 4 mins; kb4 Site: right antecubital; 13:07 Follow up: Response: No adverse reaction; Pain is decreased me1 09:57 Drug: Famotidine IVP 20 mg IVP once; dilute with 10 mL 0.9% NaCl; give over 2 minutes kb4 Route: IVP; Site: right antecubital; 13:07 Follow up: Response: No adverse reaction me1 11:09 Drug: NS 0.9% IV 1000 ml IV at 1000 ml once; to be given as a bolus over 60 minutes ar8 Route: IV; Rate: 1000 ml; Site: right antecubital; 13:06 Follow up: Response: No adverse reaction; IV Status: Completed infusion me1 11:10 Drug: Meropenem IV 1 grams IV at per protocol once; (mix in NS 100 mL) Route: IV; Rate: ar8 per protocol; Site: right antecubital; 12:29 Follow up: Response: No adverse reaction; IV Status: Completed infusion me1 13:16 Drug: NS 0.9% IV 1000 ml IV at 125 ml/hr once Route: IV; Rate: 125 ml/hr; Site: right me1 antecubital; 13:23 Follow up: IV Status: Infusion continued upon transfer me1 15:14 Drug: Ondansetron IVP 4 mg IVP once; over 2 minutes Route: IVP; Site: right antecubital;me1 15:15 Follow up: Response: No adverse reaction; Nausea is decreased me1 15:14 Drug: morphine IVP or IV 4 mg IVP once over 4 mins Route: IVP; Infused Over: 4 mins; me1 Site: right antecubital; 15:15 Follow up: Response: No adverse reaction; Pain is decreased me1 Medication: 10:00 VIS not applicable for this client. me1 Outcome: 10:54 ER care complete, transfer ordered by MD. al 15:16 Transferred by ground EMS to [facility], ky1 15:16 Condition: stable 15:16 Instructed on the need for transfer, 15:17 Patient left the ED. ky1 Signatures: Dispatcher [employer] EDTyrese Avila MD MD cha Rivera, Lilliam, Reg Reg Jose Howard em1 Antoinette Romano Michelle, RN RN me1 Sapphire Cavazos RN RN kb4 Narinder Craft RN RN ar8 Corrections: (The following items were deleted from the chart) 13:08 09:45 Chief complaint: Patient states: c/o abd pain x1wk, was released from [place] [id number] yesterday for stent placement, states "i came in for gallbladder pain last week and was treated for an aneurysm instead, i still have gallbladder pain" kb4 13:17 09:45 Chief complaint: Patient states: c/o abd pain x1wk, was released from [place] [address] yesterday for stent placement, states "i came in for gallbladder pain last week and was treated for an aneurysm instead, i still have gallbladder pain" ky1
--- NOTE | 2025-06-07 11:06 | RAD REPORT ---
Procedure: Chest Single View HISTORY: Abdomen pain COMPARISON: none FINDINGS: The lungs appear clear of acute infiltrate. No significant pleural effusion noted. The heart is normal size. IMPRESSION: No acute abnormality is displayed.
[2025-06-07 11:22] LABS: Blood Morphology Comment NOTED (NOT SEEN); Differential Total Cells Count 100; Poikilocytosis 1+; Segmented Neutrophils 79 % (40-80); Stomatocytes 1+
[2025-06-07 13:32] LABS: Urine Microscopic Reflex YN NO UMIC
[2025-06-07 18:17] VITALS: TEMP 98.2
[2025-06-07 18:23] VITALS: O2SAT 96
[2025-06-07 18:24] VITALS: BP 133/73
== END 2025-06-07 15:17 | disposition short-term general hospital (02) ==
LOC: ER 09:03
DX: K80.63 Calculus of gallbladder and bile duct with acute cholecystitis with obstruction (principal); K85.10 Biliary acute pancreatitis without necrosis or infection; D72.829 Elevated white blood cell count, unspecified
CPT/HCPCS: 96365; 96361; 93005; 85025; 80048; 36415; 83735; 85610; 80076; 81003; 84484; 83690; 83880; 74177; 71045; 96375; 99285; Q9967; J2185; J2405 ×2; J7050; J7030